=== PATIENT | male | born 1980 | race Caucasian/White ===

== ENCOUNTER 2024-08-27 04:28 | Emergency (ER) | payer OTHER ==
[~2024-08-27] VITALS: Ht 188 cm; Wt 86.4 kg
[~2024-08-27 04:28] MED LIST: AMLO-257 PO; LOSA-417 PO; PALI234D IM; PALI6TAB PO; RISP-32 PO
[2024-08-27 04:29] VITALS: BP 202/141; PULSE 93; RESP 18; TEMP 97.8; O2SAT 98
[2024-08-27 05:18] LABS: COVID AG,FIA SOURCE NASAL SWAB
[2024-08-27 05:34] LABS: SARS-COV2 (COVID) ANTIGEN,FIA Negative (Negative)
== END 2024-08-27 05:22 | disposition left against medical advice (07) ==
LOC: EMS 04:28
DX: F32.A Depression, unspecified (principal); R10.9 Unspecified abdominal pain; Z53.21 Procedure and treatment not carried out due to patient leaving prior to being seen by health care provider; Z20.822 Contact with and (suspected) exposure to COVID-19